=== PATIENT | female | born 1950 | race Caucasian/White ===

== ENCOUNTER 2025-01-05 10:24 | Emergency (ER) | payer OTHER, SELFPAY ==
[2025-01-05 10:27] VITALS: BP 179/94
--- NOTE | 2025-01-05 10:46 | ED.GENMED ---
History of Present Illness
<SHEREE Peres - Last Filed: 01/05/25 14:07>
General
Chief Complaint: Musculo-Skeletal Complaint
Source: patient
Exam Limitations: none
Time Seen by Provider: 01/05/25 10:51
Nursing documentation reviewed up to this point in time: agreed with
History of Present Illness
History of Present Illness:
Patient is a 74-year-old male who presents to the ER complaining of right calf pain/knee pain. She fell 2 weeks ago landed directly on her front and hit her right knee. She has had soreness to the right knee and has had some pain to the calf which
is what prompted her to come to the ER. Her right leg is always more swollen than her left. She is normally on meloxicam however is having a breast biopsy done on Tuesday and has been off her meloxicam for the past several days.
Review of Systems
<SHEREE Prees - Last Filed: 01/05/25 14:07>
Review of Systems
Allergies reviewed?: Yes
All Other Systems: ROS reviewed and negative except as documented in HPI and ROS
Constitutional: Reports no symptoms; Denies fever
Respiratory: Denies trouble breathing
Musculoskeletal: Reports other (pain to right knee/calf )
Skin: Reports no symptoms
Neurological: Reports no symptoms
Hematologic/Lymphatic: Reports no symptoms
Phy Exam
<SHEREE Peres - Last Filed: 01/05/25 14:07>
General Physical Exam
General Presentation: no apparent distress
General age: appears stated age
General Skin: warm and dry
General Habitus: normal
General Mental: alert
General Hydration: appears well hydrated
Neurological Exam
Neurological Exam: alert and oriented x3
Musculoskeletal Exam
Musculoskeletal Exam: full ROM and other (Mild ecchymosis to anterior lower leg minimal anterior knee ecchymosis no obvious effusion strong distal pulses normal distal sensation no calf tenderness on exam or obvious Swelling)
Skin Exam
Skin Exam: normal color and warm/dry
Psychiatric Exam
Psychiatric Exam: normal mood/affect
Course
<BROOKLYN PeresNP - Last Filed: 01/05/25 14:07>
Orders/Labs/Results
Orders:
Orders
01/05/25 11:01
Acetaminophen [Tylenol] 650 mg PO NOW STA
Knee, Right 4 or More Views [CR Knee- Right 4 Or More View*] Urgent
Comment:
Reason For Exam: pain/trauma
Venous Doppler Lwr Ext Rt [US Periph Venous LOWER Ext RT] Urgent
Comment:
Reason For Exam: pain to calf after injury
Vital Signs
Initial and Last Documented VS:
Initial Vital Signs
Temp Pulse Resp BP Pulse Ox
98.0 F 84 19 179/94 100
01/05/25 10:27 01/05/25 10:27 01/05/25 10:27 01/05/25 10:27 01/05/25 10:27
Last Documented Vital Signs
Temp Pulse Resp BP Pulse Ox
98.0 F 84 19 179/94 100
01/05/25 10:27 01/05/25 10:27 01/05/25 10:27 01/05/25 10:27 01/05/25 10:27
<Abner Siddiqui DO - Last Filed: >
Orders/Labs/Results
Orders:
Orders
01/05/25 11:01
Acetaminophen [Tylenol] 650 mg PO NOW STA
Knee, Right 4 or More Views [CR Knee- Right 4 Or More View*] Urgent
Comment:
Reason For Exam: pain/trauma
Venous Doppler Lwr Ext Rt [US Periph Venous LOWER Ext RT] Urgent
Comment:
Reason For Exam: pain to calf after injury
Vital Signs
Initial and Last Documented VS:
Initial Vital Signs
Temp Pulse Resp BP Pulse Ox
98.0 F 84 19 179/94 100
01/05/25 10:27 01/05/25 10:27 01/05/25 10:27 01/05/25 10:27 01/05/25 10:27
Last Documented Vital Signs
Temp Pulse Resp BP Pulse Ox
98.0 F 84 19 179/94 100
01/05/25 10:27 01/05/25 10:27 01/05/25 10:27 01/05/25 10:27 01/05/25 10:27
<SHEREE Peres - Last Filed: 01/05/25 14:07>
MDM/Problems Addressed
Differential Diagnosis Includes:
Not limited to knee sprain strain contusion, DVT muscle pain.
MDM/Problems Addressed:
Ultrasound negative for DVT x-ray negative for fracture possible muscle pain from injury. Patient is very good pulses has no evidence of infection on exam stable for discharge home discussed elevation and Tylenol and close outpatient follow-up.
<SHEREE Peres - Last Filed: 01/05/25 14:07>
*Critical Care Note
Total Time (30-74mins, 75-104mins- exclusive of procedures): Not Applicable
ED Attending Note
<Abner Siddiqui DO - Last Filed: >
-
Portions of this chart may have been created with voice recognition software.� Occasional wrong word or��sound alike� substitutions may have occurred due to the inherent limitations of voice recognition software.
Discharge Plan
Departure
Patient Disposition: Home (Routine Discharge)
Date of Disposition: 01/05/25
Time of Disposition: 13:03
Patient with high blood pressure during this ER visit?: Yes
Condition: Fair
Covid-19: Not Applicable
Discharge Problem:
Leg pain
Instructions: Muscle and Bone Pain (DC)
Referrals:
Quynh Murphy MD [Family Provider] -
Activity Restrictions/Additional Instructions:
As discussed keep elevated as much as possible. Follow-up with your family doctor in the next several days for reevaluation. You may take Tylenol for pain. Return if any worsening of symptoms.
Interventions
Interventions:
*Risk Screen - Suicide Last Done: 01/05/25 10:27
*General Assessment Last Done: 01/05/25 10:27
*Neglect/Abuse Screening Last Done: 01/05/25 10:27
ED- Fall Risk Assessment Last Done: 01/05/25 10:27
*ED COVID-19 Vaccine History Last Done: 01/05/25 10:27
*Nursing Disposition Last Done: 01/05/25 13:31
ED-Musculoskeletal Assessment Last Done: 01/05/25 11:15
Discharge Date and Time
Discharge Date/Time: 01/05/25 13:32
Print Language: LITHUANIAN
[2025-01-05 11:14] VITALS: BMI 40.4
[2025-01-05] MEDS: TYLENOL 650 MG PO (11:15)
== END 2025-01-05 13:32 | disposition home or self-care (01) ==
LOC: EMR 10:24
PROVIDERS: EMERGENCY PHYSICIAN Emergency Medicine; FAMILY PHYSICIAN Family Medicine
DX: S80.11XA Contusion of right lower leg, initial encounter (principal); S80.01XA Contusion of right knee, initial encounter; W19.XXXA Unspecified fall, initial encounter
CPT/HCPCS: 99284; 73564; 93971